=== PATIENT | female | born 1975 | race Caucasian/White ===

== ENCOUNTER → 2019-12-17 | Outpatient (REF) | payer OTHER, MEDICAID | LOC: M LAB REF 17:54 | PROVIDERS: ATTEND Family Medicine Addiction Medicine | DX: F11.21 Opioid dependence, in remission (principal) ==

== ENCOUNTER → 2020-01-07 | Outpatient (REF) | payer OTHER, MEDICAID | LOC: M LAB REF 17:08 | PROVIDERS: ATTEND Family Medicine Addiction Medicine | DX: F11.21 Opioid dependence, in remission (principal); Z51.81 Encounter for therapeutic drug level monitoring ==

== ENCOUNTER → 2020-01-14 | Outpatient (REF) | payer OTHER, MEDICAID | LOC: M LAB REF 13:37 | PROVIDERS: ATTEND Family Medicine Addiction Medicine | DX: F11.21 Opioid dependence, in remission (principal) ==

== ENCOUNTER → 2020-01-21 | Outpatient (REF) | payer OTHER, MEDICAID ==
[2020-01-21 18:08] LABS: FREE T4 0.91 NG/DL (0.76-1.46); THYROID STIMULATING HORMONE 0.455 uIU/ML (0.358-3.740)
== END ==
LOC: M LAB REF 17:09
PROVIDERS: ATTEND Family Medicine Addiction Medicine
DX: L63.8 Other alopecia areata (principal)

== ENCOUNTER → 2020-01-31 | Outpatient (REF) | payer OTHER, MEDICAID | LOC: M LAB REF 12:24 | PROVIDERS: ATTEND Family Medicine Addiction Medicine | DX: F11.21 Opioid dependence, in remission (principal) ==

== ENCOUNTER → 2020-02-14 | Outpatient (REF) | payer OTHER, MEDICAID | LOC: M LAB REF 16:17 | PROVIDERS: ATTEND Family Medicine Addiction Medicine | DX: F11.21 Opioid dependence, in remission (principal) ==

== ENCOUNTER → 2020-03-06 | Outpatient (REF) | payer OTHER, MEDICAID | LOC: M LAB REF 16:13 | PROVIDERS: ATTEND Family Medicine Addiction Medicine | DX: F11.21 Opioid dependence, in remission (principal) ==

== ENCOUNTER → 2020-05-11 | Outpatient (CLI) | payer MEDICAID, OTHER ==
[~2020-05-11] MED LIST: ALBU8.5H INH; ALBU83IN INH; BISO5TAB14 PO; BUDE10.22 INH; BUPR200T2 PO; E-Z-GAS II EFFERVESCENT PACKET (SODIUM BICARB./CITRIC ACID/SIMETHICONE) As Ordered ONE; E-Z-HD 98% w/w 340GM SUSP BTL As Ordered ONE; E-Z-PAQUE 96% w/w SUSP 176GM BTL As Ordered ONE; GABA600T4 PO; LOSA25TA14 PO; ONDA-83 PO; OXYB5TAB10 PO; PANT40TA29 PO; PEGPOW PO; POTA1TAB23 PO; PRED1TABL PO; SPIR-10 PO; TIZA4TAB4 PO; TORS20TA2 PO; ZUBS1SUB SL
--- NOTE | 2020-05-12 17:54 | REP ---
INDICATION: DYSPHAGIA, UNSPECIFIED. COMPARISON: None TECHNIQUE: This procedure was performed by Valeria Raya [facility], under the direct supervision of Dr. Bhakta. Images were reviewed with Dr. Bhakta prior to dictation. Liquid barium and gas producing crystals were given in the erect position, as well as liquid barium in the prone oblique position in order to perform a double contrast upper GI examination. FINDINGS: The precision instrument and tool maker film shows no organomegaly or pathological masses. The intestinal gas pattern is unremarkable. There are surgical faviola noted in the right upper quadrant as well as the pelvis. The oral and pharyngeal stages of deglutition were unremarkable. Esophageal transport is prompt and efficient and there is no evidence of esophagitis, stricture, or mucosal ring. There is no evidence of a hiatal hernia. There was no gastroesophageal reflux noted . The stomach yoo are normally outlined. The rugal folds are smooth and regular. There is no gastritis, neoplasm, or ulcerative disease. The duodenal yoo are normally outlined. The mucosal folds are smooth and regular. There is no duodenitis, peptic ulcer disease or neoplasm. The visualized portion of the proximal small bowel appears normal in course and caliber. IMPRESSION: Unremarkable upper GI. 0.3 minutes of fluoroscopy time was utilized for this procedure. Some fluoroscopic images are performed with last image hold technology. These images require no additional radiation. <Electronically signed by Valeria Raya > 05/11/20 [id number] <Electronically signed by Tulio Bhakta > 05/12/20 [id number]
== END ==
LOC: M RAD 08:09
PROVIDERS: ATTEND Physician Assistant Medical
DX: R13.10 Dysphagia, unspecified (principal); K21.9 Gastro-esophageal reflux disease without esophagitis; R11.10 Vomiting, unspecified

== ENCOUNTER → 2020-05-14 | Outpatient (CLI) | payer OTHER, MEDICAID ==
[~2020-05-14] MED LIST changes: -E-Z-GAS II EFFERVESCENT PACKET (SODIUM BICARB./CITRIC ACID/SIMETHICONE) As Ordered ONE; -E-Z-HD 98% w/w 340GM SUSP BTL As Ordered ONE; -E-Z-PAQUE 96% w/w SUSP 176GM BTL As Ordered ONE
== END ==
LOC: M LABSMTC 07:59
PROVIDERS: ATTEND Anesthesiology
DX: Z01.812 Encounter for preprocedural laboratory examination (principal); Z20.822 Contact with and (suspected) exposure to COVID-19

== ENCOUNTER → 2020-05-17 | Outpatient (REF) | payer OTHER, MEDICAID ==
[2020-05-17 18:01] LABS: BASO # 0.1 10^3/uL (0.0-0.2); BASO % 0.7 % (0.0-1.0); EOS # 0.2 10^3/uL (0.0-0.5); EOS % 1.7 % (0.0-3.0); HEMATOCRIT 40.1 % (36.0-47.0); LYMPH # 3.7 10^3/uL (1.5-5.0); LYMPH % 37.2 % (24.0-44.0); MEAN CORPUSCULAR HEMOGLOBIN 29.3 pg (27.0-33.0); MEAN CORPUSCULAR HGB CONC 32.4 g/dl (32.0-36.5); MEAN CORPUSCULAR VOLUME 90.3 fl (80.0-96.0); MONO # 0.6 10^3/uL (0.0-0.8); MONO % 5.8 % (0.0-5.0); NEUTROPHILS # 5.5 10^3/uL (1.5-8.5); NEUTROPHILS % 54.4 % (36.0-66.0); PLATELET COUNT, AUTOMATED 240 10^3/uL (150-450); RED BLOOD COUNT 4.44 10^6/uL (4.00-5.40)
[2020-05-17 18:32] LABS: ALBUMIN 3.9 GM/DL (3.2-5.2); ALT/SGPT 14 U/L (12-78); BILIRUBIN,TOTAL 0.9 MG/DL (0.2-1.0); BLOOD UREA NITROGEN 10 MG/DL (7-18); CALCIUM LEVEL 9.2 MG/DL (8.5-10.1); CARBON DIOXIDE LEVEL 31 MEQ/L (21-32); CHLORIDE LEVEL 105 MEQ/L (98-107); CREATININE FOR GFR 0.87 MG/DL (0.55-1.30); GLOMERULAR FILTRATION RATE > 60.0 (>58); GLUCOSE, FASTING 64 MG/DL (70-100); POTASSIUM SERUM 3.6 MEQ/L (3.5-5.1); SODIUM LEVEL 138 MEQ/L (136-145); TOTAL PROTEIN 6.8 GM/DL (6.4-8.2)
== END ==
LOC: M LAB REF 16:16
PROVIDERS: ATTEND Nurse Practitioner Family
DX: K21.9 Gastro-esophageal reflux disease without esophagitis (principal)

== ENCOUNTER 2020-05-19 11:54 | Day surgery (SDC) | payer OTHER ==
[~2020-05-19] VITALS: Ht 154.9 cm; Wt 54.4 kg
[~2020-05-19 11:54] MED LIST changes: +LIDOCAINE 2% 100MG/5ML SDV (FOR ANES.) As Ordered ONE; +NS 1,000 ML IV ONE; +propofoL 200 MG/20 ML VIAL As Ordered ONE
[2020-05-19 14:15] VITALS: BP 94/52
--- NOTE | 2020-05-19 14:22 | ROOR ---
Patient Name: Aneta Ramos Procedure Date: 05/19/2020 1:21 PM Date of : 1975 Age: 44 Room: [facility] Gender: Female Note Status: Finalized Procedure: Upper GI endoscopy Indications: Dyspepsia, Dysphagia Providers: Cameron Zamora MD Referring MD: Doug CARREON MD Requesting Provider: Medicines: Monitored Anesthesia Care Complications: No immediate complications. Procedure: Pre-Anesthesia Assessment: - Prior to the procedure, a History and Physical was performed, and patient medications and allergies were reviewed. The patient is competent. The risks and benefits of the procedure and the sedation options and risks were discussed with the patient. All questions were answered and informed consent was obtained. Patient identification and proposed procedure were verified by the physician, the nurse and the anesthesiologist in the procedure room. Mental Status Examination: alert and oriented. Airway Examination: normal oropharyngeal airway and neck mobility. Respiratory Examination: clear to auscultation. CV Examination: normal. Prophylactic Antibiotics: The patient does not require prophylactic antibiotics. Prior Anticoagulants: The patient has taken no previous anticoagulant or antiplatelet agents. ASA Grade Assessment: II - A patient with mild systemic disease. After reviewing the risks and benefits, the patient was deemed in satisfactory condition to undergo the procedure. The anesthesia plan was to use moderate sedation / analgesia (conscious sedation). Immediately prior to administration of medications, the patient was re-assessed for adequacy to receive sedatives. The heart rate, respiratory rate, oxygen saturations, blood pressure, adequacy of pulmonary ventilation, and response to care were monitored throughout the procedure. The physical status of the patient was re-assessed after the procedure. The Endoscope was introduced through the mouth, and advanced to the second part of duodenum. The upper GI endoscopy was accomplished without difficulty. The patient tolerated the procedure well. Findings: The examined esophagus was normal. The Z-line was regular and was found at the gastroesophageal junction. Diffuse severe inflammation characterized by congestion (edema), erythema, friability and granularity was found in the gastric body and in the gastric antrum. Biopsies were taken with a cold forceps for Helicobacter pylori testing. Biopsies were taken with a cold forceps for histology. Verification of patient identification for the specimen was done by the physician and nurse using the patient's name, date and medical record number. Estimated blood loss was minimal. The duodenal bulb and second portion of the duodenum were normal. Biopsies for histology were taken with a cold forceps for evaluation of celiac disease. Impression: - Normal esophagus. - Z-line regular, at the gastroesophageal junction. - Gastritis. Biopsied. - Normal duodenal bulb and second portion of the duodenum. Biopsied. Recommendation: - Patient has a contact number available for emergencies. The signs and symptoms of potential delayed complications were discussed with the patient. Return to normal activities tomorrow. Written discharge instructions were provided to the patient. - High fiber diet and Anti-acid reflux diet -- small meals, sit upright atleast 1 hour after meals, avoid fatty/ oily foods and avoid foods that cause reflux. - Continue present medications. - Await pathology results. - Follow an antireflux regimen. - Recommend acid suppression medication. - Return to GI clinic in [facility] (address [address], [address], [place] [address]) in 4 -- 6 weeks. Please call GI clinic @ [phone] for apppointment date and time. - Return to primary care physician. Procedure Code(s): --- Professional --- 93714, Esophagogastroduodenoscopy, flexible, transoral; with biopsy, single or multiple Diagnosis Code(s): --- Professional --- K29.70, Gastritis, unspecified, without bleeding R10.13, Epigastric pain R13.10, Dysphagia, unspecified CPT copyright 2019 [employer]. All rights reserved. The codes documented in this report are preliminary and upon animal keeper head review may be revised to meet current compliance requirements. Cameron Zamora MD Cameron Zamora MD 05/19/2020 2:22:28 PM Electronically signed by Cameron Zamora MD Number of Addenda: 0 Note Initiated On: 05/19/2020 1:21 PM Estimated Blood Loss: Estimated blood loss was minimal.
== END 2020-05-19 14:31 | disposition home or self-care (01) ==
LOC: M OPP 11:54
PROVIDERS: ATTEND Internal Medicine Gastroenterology
DX: R13.10 Dysphagia, unspecified (principal); R10.13 Epigastric pain; K29.70 Gastritis, unspecified, without bleeding

== ENCOUNTER → 2022-01-17 | Outpatient (CLI) | payer OTHER ==
[~2022-01-17] MED LIST changes: +ALBU2.5V10 INH; -ALBU83IN INH; -BUPR200T2 PO; +BUPR200T41 PO; -LIDOCAINE 2% 100MG/5ML SDV (FOR ANES.) As Ordered ONE; +LOSA25TA13 PO; -LOSA25TA14 PO; +NEXI20CA PO; -NS 1,000 ML IV ONE; -PEGPOW PO; +POLY510P14 PO; +TIZA10TA PO; -TIZA4TAB4 PO; -propofoL 200 MG/20 ML VIAL As Ordered ONE
== END ==
LOC: M LABSMTC 09:08
PROVIDERS: ATTEND Anesthesiology
DX: Z01.812 Encounter for preprocedural laboratory examination (principal); Z20.822 Contact with and (suspected) exposure to COVID-19

== ENCOUNTER 2022-01-22 06:14 | Day surgery (SDC) | payer OTHER ==
[~2022-01-22] VITALS: Ht 152.4 cm; Wt 51.7 kg
[2022-01-22] MEDS ORDERED: LR 1,000 ML IV SCH (06:35)
[2022-01-22] MEDS ORDERED: SUMA50TA2 (06:43)
[2022-01-22] MEDS ORDERED: CLON0.2T (06:43)
[2022-01-22] MEDS ORDERED: MIDAZOLAM INJ 2MG/2ML VIAL (J2250 PER 1MG) As Ordered ONE (07:05)
[2022-01-22] MEDS ORDERED: propofoL 200 MG/20 ML VIAL As Ordered ONE (07:06)
[2022-01-22] MEDS ORDERED: ONDANSETRON 4MG 2ML VIAL As Ordered ONE (07:06)
[2022-01-22] MEDS ORDERED: fentaNYL 100 MCG/2 ML INJECTION As Ordered ONE (07:06)
[2022-01-22] MEDS ORDERED: LIDOCAINE VISCOUS 2% SOLN 15ML UDC As Ordered ONE (07:06)
[2022-01-22] MEDS ORDERED: CETACAINE SPRAY 5GM As Ordered ONE (07:06)
[2022-01-22] MEDS ORDERED: LIDOCAINE 2% 100MG/5ML SDV (FOR ANES.) As Ordered ONE (07:06)
[2022-01-22 08:40] VITALS: BP 106/53
== END 2022-01-22 08:48 | disposition home or self-care (01) ==
LOC: M SDC 06:14
PROVIDERS: ATTEND Internal Medicine Cardiovascular Disease
DX: I34.0 Nonrheumatic mitral (valve) insufficiency (principal); I10 Essential (primary) hypertension; R60.0 Localized edema; K58.8 Other irritable bowel syndrome; K21.9 Gastro-esophageal reflux disease without esophagitis; G43.909 Migraine, unspecified, not intractable, without status migrainosus; J44.9 Chronic obstructive pulmonary disease, unspecified; Z79.51 Long term (current) use of inhaled steroids; Z79.52 Long term (current) use of systemic steroids; Z79.899 Other long term (current) drug therapy; F17.210 Nicotine dependence, cigarettes, uncomplicated; F12.10 Cannabis abuse, uncomplicated; F11.11 Opioid abuse, in remission; Z88.0 Allergy status to penicillin; Z88.7 Allergy status to serum and vaccine; Z88.8 Allergy status to other drugs, medicaments and biological substances; Z85.41 Personal history of malignant neoplasm of cervix uteri
CPT/HCPCS: 93312; 93320; 93325; J2250; J2405; J3010

== ENCOUNTER → 2022-02-05 | Outpatient (CLI) | payer OTHER ==
[~2022-02-05] MED LIST changes: +CLON0.2T; +SUMA50TA2; +[UNRECOGNIZED DRUG - CODE] PO
== END ==
LOC: M LABSMTC 09:57
PROVIDERS: ATTEND Anesthesiology
DX: Z01.812 Encounter for preprocedural laboratory examination (principal); Z20.822 Contact with and (suspected) exposure to COVID-19

== ENCOUNTER 2022-02-08 12:03 | Day surgery (SDC) | payer OTHER ==
[~2022-02-08] VITALS: Ht 154.9 cm; Wt 68.0 kg
[~2022-02-08 12:03] MED LIST changes: +NS 1,000 ML IV ONE
[2022-02-08] MEDS ORDERED: propofoL 200 MG/20 ML VIAL As Ordered ONE (13:56)
[2022-02-08] MEDS ORDERED: LIDOCAINE 2% 100MG/5ML SDV (FOR ANES.) As Ordered ONE (13:56)
[2022-02-08] MEDS ORDERED: propofoL 500 MG/50 ML VIAL As Ordered ONE (13:58)
[2022-02-08 14:25] VITALS: BP 99/53
== END 2022-02-08 14:26 | disposition home or self-care (01) ==
LOC: M OPP 12:03
PROVIDERS: ATTEND Internal Medicine Gastroenterology
DX: K62.89 Other specified diseases of anus and rectum (principal); K57.30 Diverticulosis of large intestine without perforation or abscess without bleeding; K64.4 Residual hemorrhoidal skin tags; K64.8 Other hemorrhoids; K29.60 Other gastritis without bleeding; R10.13 Epigastric pain; Z79.1 Long term (current) use of non-steroidal anti-inflammatories (NSAID); Z79.51 Long term (current) use of inhaled steroids; Z79.52 Long term (current) use of systemic steroids; Z79.891 Long term (current) use of opiate analgesic; Z79.899 Other long term (current) drug therapy; Z88.0 Allergy status to penicillin; Z88.5 Allergy status to narcotic agent; Z88.7 Allergy status to serum and vaccine; Z88.8 Allergy status to other drugs, medicaments and biological substances; Z91.048 Other nonmedicinal substance allergy status; J44.9 Chronic obstructive pulmonary disease, unspecified; G43.909 Migraine, unspecified, not intractable, without status migrainosus; G47.30 Sleep apnea, unspecified; I10 Essential (primary) hypertension; M79.7 Fibromyalgia; Z87.448 Personal history of other diseases of urinary system; Z87.891 Personal history of nicotine dependence; K63.89 Other specified diseases of intestine

== ENCOUNTER → 2023-07-14 | Outpatient (CLI) | payer OTHER ==
[~2023-07-14] MED LIST changes: +E-Z-GAS II EFFERVESCENT PACKET (SODIUM BICARB./CITRIC ACID/SIMETHICONE) As Ordered ONE; +E-Z-HD 98% w/w 340GM SUSP BTL As Ordered ONE; +E-Z-PAQUE 96% w/w SUSP 176GM BTL As Ordered ONE; -NS 1,000 ML IV ONE; -OXYB5TAB10 PO; +OXYB5TAB14 PO
== END ==
LOC: M RAD 08:35
PROVIDERS: ATTEND Internal Medicine Gastroenterology
DX: R11.2 Nausea with vomiting, unspecified (principal); K59.00 Constipation, unspecified